=== PATIENT | female | born 1970 | race Hispanic/Latino ===

== ENCOUNTER 2020-03-13 06:29 | Outpatient (CLI) | payer OTHER ==
[2020-03-13 12:12] LABS: #Basophils 0.1 10x3/uL (0.0-0.2); #Eosinphils 0.1 10x3/uL (0.0-0.5); #Monocytes 0.7 10x3/uL (0.0-1.1); #Neutrophils 10.8 10x3/uL (1.5-8.4); %Basophils 0.5 % (0.0-2.0); %Eosinophils 0.4 % (0.0-6.0); %Monocytes 5.4 % (0.0-10.0); %Neutrophils 79.3 % (40.0-75.0); Hemoglobin 13.7 g/dL (12.0-16.0); Mean Corpuscular HGB CONC 34.2 G/DL (32.0-36.0); Mean Corpuscular Hemoglobin 30.4 PG (27.0-33.0); Mean Corpuscular Volume 88.9 fl (80.0-100.0); Mean Platelet Volume 11.7 fl (7.4-10.4); Platelet Count 389 10x3/uL (130-400); RBC Distribution Width 11.4 % (11.5-14.5); Red Blood Cell (RBC) Count 4.51 10x6/uL (3.90-5.20); White Blood Cell (WBC) Count 13.6 10x3/uL (4.5-11.0)
[2020-03-13 12:16] LABS: Anion Gap 25 mmol/L (10-20); BUN (Urea Nitrogen) 21 mg/dL (7.0-18.7); Calc. Creatinine Clearance 0 mL/min (70-130); Calcium 10.1 mg/dL (7.8-10.44); Carbon Dioxide 22 mmol/L (22-29); Chloride 94 mmol/L (98-107); Glucose 159 mg/dL (70-105); Potassium 3.7 mmol/L (3.5-5.1); Sodium 137 mmol/L (136-145)
[2020-03-13 23:04] LABS: SARS-CoV-2 MS2 Positive; SARS-CoV-2 N Gene Negative; SARS-CoV-2 S Gene Negative; SARS-CoV-2 by NAA Not Detected (NotDetected); SARS-CoV-2 orf1ab Negative
== END 2020-03-13 06:30 | disposition home or self-care (01) ==
LOC: LABBT 06:29
PROVIDERS: ATTEND Surgery
DX: Z01.818 Encounter for other preprocedural examination (principal); Z20.828 Contact with and (suspected) exposure to other viral communicable diseases; C43.59 Malignant melanoma of other part of trunk
CPT/HCPCS: 80048; 85025; 87635; 93005; 93010; U0003

== ENCOUNTER 2020-03-18 07:46 | Day surgery (SDC) | payer OTHER ==
[2020-03-17 10:58] VITALS: BMI 35.4
[2020-03-18] MEDS ORDERED: Bupivacaine 0.25% HCL 30 ML VIAL ONE (08:33)
[2020-03-18] MEDS ORDERED: Lidocaine 1% w/Epinephrine 1:100K 20 ML VIAL ONE (08:33)
[2020-03-18] MEDS ORDERED: Lidocaine 1% PF 5 ML VIAL ONE (10:17)
[2020-03-18] MEDS ORDERED: Dexamethasone 20 MG/5 ML VIAL ONE (10:17)
[2020-03-18] MEDS ORDERED: Ondansetron PF 4 MG/2 ML Vial ONE (10:17)
[2020-03-18] MEDS ORDERED: PROPOFOL 200 MG/20 ML VIAL ONE (10:17)
[2020-03-18] MEDS ORDERED: Fentanyl 100 MCG/2 ML VIAL ONE (11:59)
[2020-03-18] MEDS ORDERED: Midazolam HCl 2 mg/2 ml Vial ONE (11:59)
--- NOTE | 2020-03-18 16:47 | OP ---
DATE OF PROCEDURE: 03/18/2020 PREOPERATIVE DIAGNOSIS: Malignant melanoma, abdomen/thorax. POSTOPERATIVE DIAGNOSIS: Malignant melanoma, abdomen/thorax. PROCEDURES PERFORMED: 1. Wide local excision of malignant melanoma, 2 cm in diameter. 2. Complex layered closure with extensive undermining, 7 cm in length. ANESTHESIA: General. ESTIMATED BLOOD LOSS: Minimal. COMPLICATIONS: None. SPECIMENS: Marked with 2 short superior and 1 long lateral, sent to Path for final diagnosis. DESCRIPTION OF PROCEDURE: The patient was taken to the operating room and laid supine on the operating room table. After general anesthetic was obtained, the abdomen was prepped and draped in a sterile fashion. An elliptical incision was used to ellipse out previous scar from melanoma excision. This turned out to be a just over a 2 cm in diameter excision and 7 cm in length, full-thickness sharply was dissected down to the fascia. The specimen was marked and sent to Path for final diagnosis. Extensive undermining was performed to facilitate a tension free layered closure. The wound was irrigated and closed using 3-0 Vicryl, 4-0 Monocryl and Dermabond. The patient was sent to Recovery in stable condition. All instrument counts, needle counts, and lap counts were correct. Job ID: [id number] [id number]
== END 2020-03-18 14:05 | disposition home or self-care (01) ==
LOC: SDC 07:46
PROVIDERS: ATTEND Surgery
PROC: 0HB7XZZ Excision of Abdomen Skin, External Approach (ICD-10-PCS; principal; 2020-03-18)
DX: C43.59 Malignant melanoma of other part of trunk (principal); I10 Essential (primary) hypertension; E11.9 Type 2 diabetes mellitus without complications; E78.5 Hyperlipidemia, unspecified; Z79.899 Other long term (current) drug therapy; Z87.891 Personal history of nicotine dependence
CPT/HCPCS: 88305; J1100; J2250; J2405; J2704; J3010; S0020